=== PATIENT | female | born 1970 | race Two or more races ===

== ENCOUNTER 2018-12-21 14:47 | Emergency (ER) | payer SELFPAY ==
[~2018-12-21] VITALS: Ht 160 cm; Wt 71.8 kg
[2018-12-21] MEDS ORDERED: ACET-2247 PO (15:01)
[2018-12-21] MEDS ORDERED: ASPI-556 PO (15:01)
[2018-12-21] MEDS ORDERED: CYCL10 PO (15:01)
[2018-12-21] MEDS ORDERED: METF-960 PO (15:01)
[2018-12-21] MEDS ORDERED: ATOR20TA86 PO (15:01)
[2018-12-21] MEDS ORDERED: LOSA25TA41 PO (15:01)
[2018-12-21 15:03] LABS: GLUCOSE,POINT OF CARE 133 MG/DL (70-110)
[2018-12-21 16:08] LABS: EOSINOPHILS % (AUTO) 1.1 % (1.0-6.0); HEMATOCRIT 37.1 % (36-46); HEMOGLOBIN 11.9 g/dL (12.0-16.0); LYMPHOCYTES # (AUTO) 3.6 K/uL (1.0-4.8); LYMPHOCYTES % (AUTO) 37.8 % (22.0-44.0); MEAN CORPUSCULAR HGB CONC 32.1 G/dL (31.0-37.0); MEAN CORPUSCULAR VOLUME 90 fL (80-100); MONOCYTES # (AUTO) 0.6 K/uL (0.1-1.0); MONOCYTES % (AUTO) 6.2 % (2.0-9.0); NEUTROPHILS # (AUTO) 5.1 K/uL (1.8-7.7); NEUTROPHILS % (AUTO) 53.9 % (40.0-70.0); PLATELET COUNT (AUTO) 432 K/uL (150-450); RED BLOOD CELL COUNT(AUTO) 4.12 MIL/uL (4.00-5.20); RED CELL DISTRIBUTION WIDTH 13.9 % (11.5-14.5)
[2018-12-21 16:51] LABS: ANION GAP 7 mmol/L (8-16); CALCIUM, TOTAL 9.1 mg/dL (8.8-10.5); CARBON DIOXIDE 29 mmol/L (22-29); CHLORIDE 106 mmol/L (98-107); CREATININE 0.69 mg/dL (0.60-1.30); GLOMERULAR FILTR. RATE CALC > 60 mL/min (>60); GLUCOSE,RANDOM 120 mg/dL (70-110); POTASSIUM 4.4 mmol/L (3.5-5.1); SODIUM SERUM 142 mmol/L (136-145); UREA NITROGEN, BLOOD 14 mg/dL (7-18)
[2018-12-21 16:56] LABS: ALANINE AMINOTRANSFERASE 30 U/L (12-78); ALBUMIN 3.6 g/dL (3.4-5.0); ALKALINE PHOSPHATASE 134 U/L (46-116); ASPARTATE AMINOTRANSFERASE 16 U/L (15-37); BILIRUBIN,TOTAL 0.2 mg/dL (0.1-1.0); TOTAL PROTEIN, SERUM 7.8 g/dL (6.4-8.2)
[2018-12-21 20:18] LABS: GLUCOSE,POINT OF CARE 103 MG/DL (70-110)
[2018-12-21 20:30] VITALS: BP 124/74
== END 2018-12-21 20:30 | disposition home or self-care (01) ==
LOC: EMS 14:50
DX: R07.89 Other chest pain (principal); I10 Essential (primary) hypertension; E11.9 Type 2 diabetes mellitus without complications; E78.00 Pure hypercholesterolemia, unspecified; Z91.013 Allergy to seafood; Z88.8 Allergy status to other drugs, medicaments and biological substances; Z79.84 Long term (current) use of oral hypoglycemic drugs; Z79.82 Long term (current) use of aspirin
CPT/HCPCS: 85379; 93005